=== PATIENT | male | born 1980 | race Caucasian/White ===

== ENCOUNTER → 2024-07-20 08:43 | Outpatient (CLI) | payer BC, SELFPAY ==
--- NOTE | 2024-07-20 08:46 | DI.RAD.S_ITS ---
PROCEDURE: FL ARTHROGRAM SHOULDER LT INDICATIONS: left shoulder pain COMPARISON: None. TECHNIQUE: Informed consent was obtained and the injection site was marked with ink. The patient, the procedure, and the site were confirmed during a pre-procedure huddle. Using sterile technique and fluoroscopic guidance, a 22 gauge needle was advanced through the skin into the left shoulder joint. Following intra-articular injection with 16 cc of a dilute gadolinium mixture (1:200 gadolinium diluted in equal parts 1% lidocaine and iodinated contrast) into the joint, the needle was removed, and hemostasis was obtained with direct pressure. There were no complications. Multiple images were obtained and archived. FINDINGS: There were no arthrographic abnormalities; a normal distribution of contrast in the joint was observed. IMPRESSION: Technically successful left shoulder arthrogram. The patient then had MR imaging. Please refer to the separate report for MRI findings. Dictated by: Monico Sanders M.D. on 07/20/2024 at 9:59 Approved by: Monico Sanders M.D. on 07/20/2024 at 10:00
--- NOTE | 2024-07-20 08:47 | DI.MRI.S_ITS ---
PROCEDURE: MR SHOULDER LT W CON INDICATIONS: left shoulder pain TECHNIQUE: After the administration of 12 mL of dilute intra-articular Gadolinium contrast, oblique coronal T1 and T2 spin echo with fat saturation, oblique sagittal T1 spin echo with and without fat saturation, oblique sagittal T2 fast spin echo with fat saturation, axial T1 spin echo with fat saturation through the shoulder. COMPARISON: [facility], [place], [place] ARTHROGRAM SHOULDER LT, 07/20/2024, 9:04. [facility], [place], XR SHOULDER 2+ VIEWS LEFT, 06/29/2024, 13:08. FINDINGS: Image quality: Excellent. Rotator cuff: The supraspinatus, infraspinatus, and teres minor tendons are intact. Intrasubstance signal in the distal subscapularis tendon may be related to the arthrogram injection versus secondary to underlying high-grade partial tearing. The rotator cuff musculature is normal in bulk. Bones and bursae: No acute trabecular bone injury or fracture. Small chronic traction cystic changes are seen at the posterior superior humeral head. Mild degenerative spurring in the glenoid rim without a focal cartilage defect. Mild to moderate degenerative changes of the acromioclavicular joint. Trace noncommunicating subacromial/subdeltoid bursal fluid. No glenohumeral intra-articular loose body. Capsule and soft tissues: Nondisplaced tearing of the superior to posterior superior labrum. The remainder of the labrum is intact. Proximal biceps long head tendon demonstrates partial intrasubstance tearing and moderate tendinosis with perching along the medial bicipital groove. Glenohumeral ligaments are intact. IMPRESSION: 1. Nondisplaced tearing of the superior to posterior superior labrum. 2. Partial intrasubstance tearing of the proximal biceps long head tendon superimposed on moderate tendinosis, with perching along the medial bicipital groove. 3. Thickening of the distal subscapularis tendon with intrasubstance [id number] fluid, which may be related to extravasation during the arthrogram injection versus high-grade partial articular sided tearing at the distal insertion. 4. [id number] acromioclavicular joint osteoarthrosis. Approved by: Fredis Beasley M.D. on 07/20/2024 at 10:53
== END ==
PROVIDERS: Referring Provider Orthopaedic Surgery; Visit Provider Orthopaedic Surgery
DX: S43.492A Other sprain of left shoulder joint, initial encounter (principal); S46.112A Strain of muscle, fascia and tendon of long head of biceps, left arm, initial encounter; M19.012 Primary osteoarthritis, left shoulder; M25.512 Pain in left shoulder
CPT/HCPCS: 23350; 73040; 73222; A9579; Q9967